=== PATIENT | male | born 1935 | race Caucasian/White ===

== ENCOUNTER 2018-03-07 08:15 | Inpatient (IN) | payer MEDICARE ==
[~2018-03-07] VITALS: Ht 172.7 cm; Wt 79.0 kg
[~2018-03-07 08:15] MED LIST: ASPI-612 PO; CARV6.253 PO; FLUO10CA66 PO; FURO40TA4 PO; LOVA20TA2 PO; NITR0.4T51 SL
[2018-03-07] MEDS ORDERED: furosemide 10 MG/1 ML 10ml inj IV ONE ×2 (08:20→08:25)
[2018-03-07] MEDS ORDERED: albuterol 2.5 MG/3 ML nebule CONTNEB PRN (08:25)
[2018-03-07] MEDS ORDERED: methylPREDNISolone sod succ 125mg/2ml vial IV ONE (08:25)
[2018-03-07] MEDS ORDERED: nitroGLYCERIN-Tridil 50MG/D5W 250 ML IV PRN (08:28)
[2018-03-07 08:30] LABS: ABG BASE EXCESS -4.3 mmol/L (-2.0-3.0); ABG HCO3 24.3 mmol/L (22.0-26.0); ABG OXYGEN SATURATION 97.2 % (95-98); ABG PCO2 (T) 56.6 mmHg (35.0-48.0); ABG PH (T) 7.244 (7.350-7.450); ABG PO2 (T) 106.3 mmHg (83-108); FCOHb 0.6 % (0.5-1.5); FMetHb 0.2 % (0.3-1.12); FO2Hb 96.4 % (94-100); PATIENT TEMPERATURE 35.8; RESPIRATORY RATE 20 b/min; TOTAL HEMOGLOBIN 15.1 G/dl (14.0-18.0)
[2018-03-07 08:50] LABS: BASOPHILS % (AUTO) 0.1 % (0-1); EOSINOPHILS # (AUTO) 0.2 X10'3 (0-0.9); EOSINOPHILS % (AUTO) 1.2 % (0-6); HEMATOCRIT 43.8 % (42.0-52.0); HEMOGLOBIN 14.3 g/dl (14.0-17.9); LYMPHOCYTES # (AUTO) 1.6 X10'3 (1.1-4.8); LYMPHOCYTES % (AUTO) 10.5 % (21-51); MEAN CORPUSCULAR HEMOGLOBIN 31.2 PG (27.0-31.0); MEAN CORPUSCULAR HGB CONC 32.6 % (33.0-36.5); MEAN CORPUSCULAR VOLUME 95.8 FL (78-98); MEAN PLATELET VOLUME 9.1 FL (7.4-10.4); MONOCYTES # (AUTO) 0.5 X10'3 (0-0.9); MONOCYTES % (AUTO) 3.4 % (2-12); NEUTROPHILS % (AUTO) 84.8 % (42-75); PLATELET COUNT 219 X10'3 (140-440); RED BLOOD COUNT 4.57 X10'6 (4.70-6.10); WHITE BLOOD COUNT 15.4 X10'3 (4.5-11.0)
[2018-03-07] MEDS ORDERED: levoFLOXACIN-Levaquin 500mg/D5 100 ML IV ONE (08:55)
[2018-03-07 09:12] LABS: CLARITY,URINE CLEAR (Clear); COLOR,URINE YELLOW (Yellow); GLUCOSE, URINE NEGATIVE (Neg); KETONES,URINE NEGATIVE (Neg); LEUKOCYTE ESTERASE ,URINE NEGATIVE (Neg); NITRITES, URINE NEGATIVE (Neg); OCCULT BLOOD,URINE NEGATIVE (Neg); PH,URINE 5.5 (4.8-8.0); PROTEIN,URINE 30 mg/dl (Neg); UROBILINOGEN,URINE 0.2 E.U/dL (0.2-1.0)
[2018-03-07 09:14] LABS: UA COLLECTION TYPE FOLEY CATH
[2018-03-07 09:18] LABS: ALANINE AMINOTRANSFERASE 35 U/L (12-78); ALBUMIN 3.1 G/DL (3.4-5.0); ALBUMIN/GLOBULIN RATIO 0.8 (1.1-1.5); ALKALINE PHOSPHATASE 166 IU/L (46-116); ANION GAP 10 (8-16); ASPARTATE AMINO TRANSFERASE 37 U/L (10-37); BILIRUBIN,TOTAL 0.3 MG/DL (0.1-1.0); BLOOD UREA NITROGEN 24 MG/DL (7-18); CALCIUM 8.9 MG/DL (8.5-10.1); CHLORIDE 104 MMOL/L (99-107); CREATININE 1.33 MG/DL (0.60-1.10); GLUCOSE 284 MG/DL (70-104); POTASSIUM 4.7 MMOL/L (3.5-5.1); SODIUM 140 MMOL/L (135-145); TOTAL CARBON DIOXIDE 26.2 MMOL/L (24-32); eGFR 52 ML/MIN
[2018-03-07 09:19] LABS: PROTHROMBIN TIME 10.1 SECONDS (9.0-12.0)
[2018-03-07 09:20] LABS: PARTIAL THROMBOPLASTIN TIME 24 SECONDS (22-32)
[2018-03-07 09:21] LABS: BACTERIA,URINE NONE SEEN /HPF (Neg); MUCUS STRANDS FEW /LPF (Neg); RBC,URINE NONE SEEN /HPF (0-2); SQUAMOUS EPITHELIAL CELL,UR FEW /LPF (FEW); WBC,URINE 0-4 /HPF (0-4)
[2018-03-07 09:22] LABS: HYALINE CASTS 0-3 /LPF (NEGATIVE); TRANSITIONAL EPI CELLS,URINE FEW /HPF
[2018-03-07 10:30] LABS: ABG BASE EXCESS -0.3 mmol/L (-2.0-3.0); ABG HCO3 25.7 mmol/L (22.0-26.0); ABG OXYGEN SATURATION 99.4 % (95-98); ABG PCO2 (T) 45.8 mmHg (35.0-48.0); ABG PH (T) 7.364 (7.350-7.450); ABG PO2 (T) 264.2 mmHg (83-108); ALLEN'S TEST Positive; FCOHb 0.4 % (0.5-1.5); FMetHb 0.2 % (0.3-1.12); FO2Hb 98.8 % (94-100); PATIENT TEMPERATURE 36.5; RESPIRATORY RATE 20 b/min; RESPIRATORY RATE (OBSERVED) 30 b/min; TOTAL HEMOGLOBIN 14.1 G/dl (14.0-18.0)
[2018-03-07] MEDS: normal saline 1000ml 1,000 ML IV SCH (11:56)
[2018-03-07] MEDS ORDERED: magnesium 4gm in 100ml NS 100 ML IV PRN (12:00)
[2018-03-07] MEDS ORDERED: potassium Cl 20 mEq SR tablet PO PRN ×2 (12:00)
[2018-03-07] MEDS ORDERED: acetaminophen 325mg tablet PO PRN (12:00)
[2018-03-07] MEDS ORDERED: potassium Cl 40MEQ/NS 500ml 500 ML IV PRN ×2 (12:00)
[2018-03-07] MEDS: K and/or MAG REPLACEMENT MC SCH (12:00)
[2018-03-07] MEDS ORDERED: magnesium Cl slow-release 64mg tablet PO PRN (12:00)
[2018-03-07] MEDS ORDERED: magnesium 1gm/100ml D5W IVPB 100 ML IV PRN (12:00)
[2018-03-07] MEDS ORDERED: CARV-50 PO (12:03)
[2018-03-07] MEDS ORDERED: CHOL10002 PO (12:05)
[2018-03-07] MEDS ORDERED: FURO-150 PO (12:06)
[2018-03-07] MEDS ORDERED: APIX2.5T PO (12:09)
[2018-03-07] MEDS ORDERED: LORA10CA PO (12:11)
[2018-03-07] MEDS: levoFLOXACIN-Levaquin 500mg/D5 100 ML IV SCH (12:15)
[2018-03-07 14:00] VITALS: BP 119/69
[2018-03-07 15:00] VITALS: BP 105/72
[2018-03-07] MEDS ORDERED: LOVASTATIN 40 MG PO SCH (17:00)
[2018-03-07 19:00] VITALS: BP 159/91
[2018-03-07] MEDS: apixaban 2.5mg tablet PO SCH (20:46)
[2018-03-07] MEDS: methylPREDNISolone sod succ/PF 40mg inj. IV SCH (20:46)
[2018-03-07] MEDS: carVEDilol 12.5mg tablet PO SCH (20:46)
[2018-03-07] MEDS: FLUoxetine 20mg capsule PO SCH (20:46)
[2018-03-07] MEDS: furosemide 20MG tablet PO SCH (20:46)
[2018-03-07] MEDS: heparin, porcine 5000 units/ml vial SQ SCH (20:47)
[2018-03-07] MEDS: atorvastatin 10mg tablet PO SCH (20:48)
[2018-03-07 23:00] VITALS: BP 116/65
[2018-03-08 03:00] VITALS: BP 114/59
[2018-03-08 05:31] LABS: BASOPHILS % (AUTO) 0.1 % (0-1); EOSINOPHILS % (AUTO) 0 % (0-6); HEMATOCRIT 36.7 % (42.0-52.0); LYMPHOCYTES # (AUTO) 0.7 X10'3 (1.1-4.8); LYMPHOCYTES % (AUTO) 6.4 % (21-51); MEAN CORPUSCULAR HGB CONC 32.7 % (33.0-36.5); MEAN CORPUSCULAR VOLUME 94.8 FL (78-98); MEAN PLATELET VOLUME 9.7 FL (7.4-10.4); MONOCYTES # (AUTO) 0.2 X10'3 (0-0.9); MONOCYTES % (AUTO) 1.9 % (2-12); NEUTROPHILS % (AUTO) 91.6 % (42-75); PLATELET COUNT 162 X10'3 (140-440); RED BLOOD COUNT 3.87 X10'6 (4.70-6.10); RED CELL DISTRIBUTION WIDTH 14.6 % (11.5-14.5); WHITE BLOOD COUNT 10.9 X10'3 (4.5-11.0)
[2018-03-08 05:57] LABS: ALBUMIN 2.6 G/DL (3.4-5.0); ANION GAP 9 (8-16); BLOOD UREA NITROGEN 22 MG/DL (7-18); BUN/CREATININE RATIO 22.9 (5.4-32.0); CALCIUM 8.7 MG/DL (8.5-10.1); CHLORIDE 101 MMOL/L (99-107); CREATININE 0.96 MG/DL (0.60-1.10); GLUCOSE 151 MG/DL (70-104); MAGNESIUM 1.8 MG/DL (1.5-2.4); POTASSIUM 4.4 MMOL/L (3.5-5.1); SODIUM 139 MMOL/L (135-145); TOTAL CARBON DIOXIDE 29.5 MMOL/L (24-32); eGFR 75 ML/MIN
[2018-03-08 07:00] VITALS: BP 114/58
[2018-03-08] MEDS: heparin, porcine 5000 units/ml vial SQ SCH ×2 (07:42→21:34)
[2018-03-08] MEDS: methylPREDNISolone sod succ/PF 40mg inj. IV SCH ×2 (07:42→21:33)
[2018-03-08] MEDS: carVEDilol 12.5mg tablet PO SCH ×2 (07:43→21:34)
[2018-03-08] MEDS: aspirin 81mg tablet.DR PO SCH (07:43)
[2018-03-08] MEDS: apixaban 2.5mg tablet PO SCH ×2 (07:43→21:35)
[2018-03-08] MEDS: loratadine 10mg tablet PO SCH (07:43)
[2018-03-08] MEDS: azithromycin/NS 500mg/250ml 250 ML IV SCH (07:43)
[2018-03-08] MEDS: levoFLOXACIN-Levaquin 500mg/D5 100 ML IV SCH (07:43)
[2018-03-08] MEDS ORDERED: LORATADINE 10 MG PO SCH (08:00)
[2018-03-08] MEDS: K and/or MAG REPLACEMENT MC SCH (08:00)
[2018-03-08] MEDS ORDERED: non-formulary drug (Aspirin (Aspir 81) 1 TAB) PO SCH (08:00)
[2018-03-08 11:00] VITALS: BP 113/56
[2018-03-08 15:54] VITALS: BP 113/56
[2018-03-08] MEDS: atorvastatin 10mg tablet PO SCH (16:21)
[2018-03-08 19:00] VITALS: BP 109/58
[2018-03-08] MEDS: FLUoxetine 20mg capsule PO SCH (21:34)
[2018-03-08] MEDS: lactobacillus rhamnosus 10,000 MMU CELLS/CAPSULE PO SCH (21:34)
[2018-03-08] MEDS: furosemide 20MG tablet PO SCH (21:35)
[2018-03-08 23:00] VITALS: BP 111/68
[2018-03-09 03:00] VITALS: BP 115/51
[2018-03-09 05:09] LABS: BASOPHILS % (AUTO) 0.1 % (0-1); EOSINOPHILS # (AUTO) 0.1 X10'3 (0-0.9); HEMATOCRIT 35.1 % (42.0-52.0); HEMOGLOBIN 11.4 g/dl (14.0-17.9); LYMPHOCYTES # (AUTO) 0.7 X10'3 (1.1-4.8); MEAN CORPUSCULAR HEMOGLOBIN 30.8 PG (27.0-31.0); MEAN CORPUSCULAR HGB CONC 32.4 % (33.0-36.5); MEAN PLATELET VOLUME 9.2 FL (7.4-10.4); MONOCYTES # (AUTO) 0.4 X10'3 (0-0.9); MONOCYTES % (AUTO) 2.9 % (2-12); NEUTROPHILS # (AUTO) 12.8 X10'3 (1.8-7.7); PLATELET COUNT 153 X10'3 (140-440); RED CELL DISTRIBUTION WIDTH 14.8 % (11.5-14.5); WHITE BLOOD COUNT 14.1 X10'3 (4.5-11.0)
[2018-03-09 05:20] LABS: ALBUMIN 2.5 G/DL (3.4-5.0); ANION GAP 6 (8-16); BLOOD UREA NITROGEN 22 MG/DL (7-18); BUN/CREATININE RATIO 30.1 (5.4-32.0); CALCIUM 8.4 MG/DL (8.5-10.1); CHLORIDE 102 MMOL/L (99-107); CREATININE 0.73 MG/DL (0.60-1.10); GLUCOSE 162 MG/DL (70-104); MAGNESIUM 1.9 MG/DL (1.5-2.4); POTASSIUM 4.5 MMOL/L (3.5-5.1); SODIUM 137 MMOL/L (135-145); TOTAL CARBON DIOXIDE 29.4 MMOL/L (24-32); eGFR > 90 ML/MIN
[2018-03-09 06:00] VITALS: BP 112/59
[2018-03-09] MEDS: K and/or MAG REPLACEMENT MC SCH (08:00)
[2018-03-09] MEDS: carVEDilol 12.5mg tablet PO SCH ×2 (08:42→20:27)
[2018-03-09] MEDS: lactobacillus rhamnosus 10,000 MMU CELLS/CAPSULE PO SCH ×2 (08:42→20:28)
[2018-03-09] MEDS: apixaban 2.5mg tablet PO SCH ×2 (08:43→20:28)
[2018-03-09] MEDS: aspirin 81mg tablet.DR PO SCH (08:43)
[2018-03-09] MEDS: loratadine 10mg tablet PO SCH (08:44)
[2018-03-09] MEDS: methylPREDNISolone sod succ/PF 40mg inj. IV SCH ×2 (08:46→20:27)
[2018-03-09] MEDS: heparin, porcine 5000 units/ml vial SQ SCH ×2 (08:46→20:27)
[2018-03-09] MEDS: azithromycin/NS 500mg/250ml 250 ML IV SCH (08:46)
[2018-03-09] MEDS: levoFLOXACIN-Levaquin 500mg/D5 100 ML IV SCH (10:21)
[2018-03-09 11:00] VITALS: BP 94/52
[2018-03-09] MEDS: normal saline 1000ml 1,000 ML IV SCH (11:56)
[2018-03-09] MEDS ORDERED: ALPRAZolam 0.5mg tablet PO PRN (14:35)
[2018-03-09 15:00] VITALS: BP 97/54
[2018-03-09 19:00] VITALS: BP 106/67
[2018-03-09] MEDS: furosemide 20MG tablet PO SCH (20:28)
[2018-03-09] MEDS: FLUoxetine 20mg capsule PO SCH (20:28)
[2018-03-09] MEDS: atorvastatin 10mg tablet PO SCH (20:28)
[2018-03-09 23:00] VITALS: BP 111/81
[2018-03-10] MEDS ORDERED: ipratropium/albuterol 3ml nebule NEB PRN (02:30)
[2018-03-10 03:00] VITALS: BP 109/62
[2018-03-10 05:59] LABS: BASOPHILS # (AUTO) 0.1 X10'3 (0-0.2); BASOPHILS % (AUTO) 0.6 % (0-1); EOSINOPHILS # (AUTO) 0.1 X10'3 (0-0.9); EOSINOPHILS % (AUTO) 0.9 % (0-6); HEMATOCRIT 36.1 % (42.0-52.0); HEMOGLOBIN 11.8 g/dl (14.0-17.9); LYMPHOCYTES # (AUTO) 0.7 X10'3 (1.1-4.8); LYMPHOCYTES % (AUTO) 5.7 % (21-51); MEAN CORPUSCULAR HEMOGLOBIN 30.7 PG (27.0-31.0); MEAN CORPUSCULAR HGB CONC 32.6 % (33.0-36.5); MEAN CORPUSCULAR VOLUME 94.1 FL (78-98); MEAN PLATELET VOLUME 10.3 FL (7.4-10.4); MONOCYTES # (AUTO) 0.5 X10'3 (0-0.9); MONOCYTES % (AUTO) 4.2 % (2-12); NEUTROPHILS # (AUTO) 10.7 X10'3 (1.8-7.7); NEUTROPHILS % (AUTO) 88.6 % (42-75); PLATELET COUNT 169 X10'3 (140-440); RED BLOOD COUNT 3.83 X10'6 (4.70-6.10); RED CELL DISTRIBUTION WIDTH 14.5 % (11.5-14.5); WHITE BLOOD COUNT 12.1 X10'3 (4.5-11.0)
[2018-03-10 06:00] VITALS: BP 118/76
[2018-03-10 06:26] LABS: ALBUMIN 2.7 G/DL (3.4-5.0); ANION GAP 7 (8-16); BLOOD UREA NITROGEN 23 MG/DL (7-18); BUN/CREATININE RATIO 32.4 (5.4-32.0); CALCIUM 8.8 MG/DL (8.5-10.1); CHLORIDE 102 MMOL/L (99-107); CREATININE 0.71 MG/DL (0.60-1.10); GLUCOSE 155 MG/DL (70-104); POTASSIUM 4.6 MMOL/L (3.5-5.1); SODIUM 137 MMOL/L (135-145); TOTAL CARBON DIOXIDE 27.7 MMOL/L (24-32); eGFR > 90 ML/MIN
[2018-03-10] MEDS: K and/or MAG REPLACEMENT MC SCH (08:00)
[2018-03-10] MEDS: loratadine 10mg tablet PO SCH (08:03)
[2018-03-10] MEDS: lactobacillus rhamnosus 10,000 MMU CELLS/CAPSULE PO SCH (08:04)
[2018-03-10] MEDS: aspirin 81mg tablet.DR PO SCH (08:04)
[2018-03-10] MEDS: carVEDilol 12.5mg tablet PO SCH (08:04)
[2018-03-10] MEDS: apixaban 2.5mg tablet PO SCH (08:04)
[2018-03-10] MEDS: heparin, porcine 5000 units/ml vial SQ SCH (08:05)
[2018-03-10] MEDS: methylPREDNISolone sod succ/PF 40mg inj. IV SCH (08:11)
[2018-03-10] MEDS: azithromycin/NS 500mg/250ml 250 ML IV SCH (08:11)
[2018-03-10] MEDS: levoFLOXACIN-Levaquin 500mg/D5 100 ML IV SCH (09:58)
[2018-03-10] MEDS ORDERED: IPRA3AMP9 NEB (10:20)
[2018-03-10] MEDS ORDERED: AZIT500T PO (10:20)
[2018-03-10] MEDS ORDERED: LEVO500T2 PO (10:20)
[2018-03-10] MEDS ORDERED: PRED20TA PO (10:29)
[2018-03-10 11:00] VITALS: BP 90/58
== END 2018-03-10 14:55 | disposition home or self-care (01) | DRG 871 ==
LOC: EDBD 08:15 → EDSEX 08:15 → ER 08:17 → ED HOLD 11:56 → PCU 3S 14:10
PROVIDERS: ADMIT Internal Medicine; ATTEND Internal Medicine
PROC: 5A09357 Assistance with Respiratory Ventilation, Less than 24 Consecutive Hours, Continuous Positive Airway Pressure (ICD-10-PCS; principal; 2018-03-07)
DX: A41.9 Sepsis, unspecified organism (principal); J96.21 Acute and chronic respiratory failure with hypoxia; J96.22 Acute and chronic respiratory failure with hypercapnia; J18.1 Lobar pneumonia, unspecified organism; J44.1 Chronic obstructive pulmonary disease with (acute) exacerbation; N17.9 Acute kidney failure, unspecified; J44.0 Chronic obstructive pulmonary disease with (acute) lower respiratory infection; I50.22 Chronic systolic (congestive) heart failure; E78.5 Hyperlipidemia, unspecified; F32.9 Major depressive disorder, single episode, unspecified; F41.9 Anxiety disorder, unspecified; I11.0 Hypertensive heart disease with heart failure; I25.10 Atherosclerotic heart disease of native coronary artery without angina pectoris; Z66 Do not resuscitate; Z99.81 Dependence on supplemental oxygen; Z90.2 Acquired absence of lung [part of]; Z95.5 Presence of coronary angioplasty implant and graft; Z95.810 Presence of automatic (implantable) cardiac defibrillator; Z88.0 Allergy status to penicillin; Z88.1 Allergy status to other antibiotic agents; Z88.6 Allergy status to analgesic agent; Z88.8 Allergy status to other drugs, medicaments and biological substances; Z79.899 Other long term (current) drug therapy; Z79.82 Long term (current) use of aspirin; Z87.891 Personal history of nicotine dependence
CPT/HCPCS: 36415; 36600; 71045; 80048; 80053; 81001; 82803; 82948; 83605; 83735; 83880; 84145; 84484; 85018; 85025; 85610; 85730; 87040; 87070; 93005; 94640; 94644; 94660; 94760; 96365; 96366; 96368; 96375; 97116; 97161; 97530; 99291; J0456; J1644; J1940; J1956; J2920; J2930; J3490; J7030

== ENCOUNTER 2018-03-13 07:48 | Inpatient (IN) | payer MEDICARE ==
[~2018-03-13] VITALS: Ht 170.2 cm; Wt 79.0 kg
[~2018-03-13 07:48] MED LIST changes: +APIX2.5T PO; +AZIT500T PO; +CARV-50 PO; -CARV6.253 PO; +CHOL10002 PO; +FURO-150 PO; -FURO40TA4 PO; +IPRA3AMP9 NEB; +LEVO500T2 PO; +LORA10CA PO; -NITR0.4T51 SL; +PRED20TA PO
[2018-03-13] MEDS ORDERED: diltiazem 5mg/ml 5ml inj. IV ONE (08:10)
[2018-03-13] MEDS ORDERED: diltiazem 30mg tablet PO ONE (08:10)
[2018-03-13 08:36] LABS: BASOPHILS # (AUTO) 0.1 X10'3 (0-0.2); BASOPHILS % (AUTO) 0.4 % (0-1); EOSINOPHILS # (AUTO) 0.1 X10'3 (0-0.9); EOSINOPHILS % (AUTO) 0.5 % (0-6); HEMATOCRIT 41.2 % (42.0-52.0); HEMOGLOBIN 13.5 g/dl (14.0-17.9); LYMPHOCYTES # (AUTO) 2.5 X10'3 (1.1-4.8); LYMPHOCYTES % (AUTO) 16.1 % (21-51); MEAN CORPUSCULAR HEMOGLOBIN 30.9 PG (27.0-31.0); MEAN CORPUSCULAR HGB CONC 32.8 % (33.0-36.5); MEAN CORPUSCULAR VOLUME 94.2 FL (78-98); MEAN PLATELET VOLUME 10.2 FL (7.4-10.4); MONOCYTES # (AUTO) 0.9 X10'3 (0-0.9); MONOCYTES % (AUTO) 5.8 % (2-12); NEUTROPHILS # (AUTO) 12.2 X10'3 (1.8-7.7); NEUTROPHILS % (AUTO) 77.2 % (42-75); PLATELET COUNT 149 X10'3 (140-440); RED BLOOD COUNT 4.37 X10'6 (4.70-6.10); RED CELL DISTRIBUTION WIDTH 14.9 % (11.5-14.5); WHITE BLOOD COUNT 15.7 X10'3 (4.5-11.0)
[2018-03-13 08:48] LABS: ALANINE AMINOTRANSFERASE 107 U/L (12-78); ALBUMIN 2.8 G/DL (3.4-5.0); ALBUMIN/GLOBULIN RATIO 0.9 (1.1-1.5); ALKALINE PHOSPHATASE 98 IU/L (46-116); ANION GAP 7 (8-16); ASPARTATE AMINO TRANSFERASE 39 U/L (10-37); BILIRUBIN,TOTAL 0.4 MG/DL (0.1-1.0); BLOOD UREA NITROGEN 31 MG/DL (7-18); BUN/CREATININE RATIO 32.6 (5.4-32.0); CALCIUM 8.8 MG/DL (8.5-10.1); CHLORIDE 104 MMOL/L (99-107); CREATININE 0.95 MG/DL (0.60-1.10); GLUCOSE 120 MG/DL (70-104); SODIUM 141 MMOL/L (135-145); TOTAL CARBON DIOXIDE 30.1 MMOL/L (24-32); eGFR 76 ML/MIN
[2018-03-13 08:53] LABS: POTASSIUM 4.9 MMOL/L (3.5-5.1)
[2018-03-13 08:54] LABS: MAGNESIUM 2.1 MG/DL (1.5-2.4)
[2018-03-13 08:58] LABS: PROTHROMBIN TIME 10.7 SECONDS (9.0-12.0)
[2018-03-13] MEDS ORDERED: furosemide 10 MG/1 ML 10ml inj IV ONE (09:00)
[2018-03-13] MEDS ORDERED: mag hydrox/Alum hydrox/simeth 30ml oral suspension PO PRN (09:30)
[2018-03-13] MEDS: furosemide 40mg/4ml inj IV SCH (09:30)
[2018-03-13] MEDS ORDERED: ipratropium/albuterol 3ml nebule NEB PRN (09:30)
[2018-03-13] MEDS ORDERED: ondansetron/PF 4mg/2ml inj IV PRN (09:30)
[2018-03-13] MEDS ORDERED: digoxin 250mcg/ml 2ml ampule IV ONE (09:30)
[2018-03-13] MEDS ORDERED: potassium Cl 40MEQ/NS 500ml 500 ML IV PRN ×2 (09:30)
[2018-03-13] MEDS ORDERED: magnesium hydroxide 30ml (MOM) UD suspension PO PRN (09:30)
[2018-03-13] MEDS ORDERED: magnesium Cl slow-release 64mg tablet PO PRN (09:30)
[2018-03-13] MEDS ORDERED: magnesium 1gm/100ml D5W IVPB 100 ML IV PRN (09:30)
[2018-03-13] MEDS ORDERED: HYDROcodone/acetaminophen 5mg/325mg tablet PO PRN (09:30)
[2018-03-13] MEDS ORDERED: potassium Cl 20 mEq SR tablet PO PRN ×2 (09:30)
[2018-03-13] MEDS ORDERED: acetaminophen 325mg tablet PO PRN (09:30)
[2018-03-13] MEDS ORDERED: magnesium 4gm in 100ml NS 100 ML IV PRN (09:30)
[2018-03-13 11:00] VITALS: BP 117/74
[2018-03-13 15:00] VITALS: BP 114/75
[2018-03-13 19:00] VITALS: BP 126/75
[2018-03-13] MEDS ORDERED: apixaban 2.5mg tablet PO SCH (20:00)
[2018-03-13] MEDS: carVEDilol 12.5mg tablet PO SCH (20:55)
[2018-03-13 23:00] VITALS: BP 99/56
[2018-03-14 03:00] VITALS: BP 107/62
[2018-03-14 05:06] LABS: BASOPHILS % (AUTO) 0.4 % (0-1); EOSINOPHILS # (AUTO) 0.2 X10'3 (0-0.9); HEMATOCRIT 36.8 % (42.0-52.0); LYMPHOCYTES # (AUTO) 2.1 X10'3 (1.1-4.8); LYMPHOCYTES % (AUTO) 20.6 % (21-51); MEAN CORPUSCULAR HEMOGLOBIN 31.2 PG (27.0-31.0); MEAN CORPUSCULAR HGB CONC 32.5 % (33.0-36.5); MEAN CORPUSCULAR VOLUME 95.8 FL (78-98); MEAN PLATELET VOLUME 10.1 FL (7.4-10.4); MONOCYTES # (AUTO) 0.6 X10'3 (0-0.9); MONOCYTES % (AUTO) 5.5 % (2-12); NEUTROPHILS # (AUTO) 7.3 X10'3 (1.8-7.7); NEUTROPHILS % (AUTO) 71.5 % (42-75); PLATELET COUNT 145 X10'3 (140-440); RED BLOOD COUNT 3.84 X10'6 (4.70-6.10); RED CELL DISTRIBUTION WIDTH 15.1 % (11.5-14.5); WHITE BLOOD COUNT 10.3 X10'3 (4.5-11.0)
[2018-03-14 05:51] LABS: ALANINE AMINOTRANSFERASE 75 U/L (12-78); ALBUMIN 2.5 G/DL (3.4-5.0); ALBUMIN/GLOBULIN RATIO 0.9 (1.1-1.5); ALKALINE PHOSPHATASE 86 IU/L (46-116); ANION GAP 5 (8-16); ASPARTATE AMINO TRANSFERASE 20 U/L (10-37); BILIRUBIN,TOTAL 0.6 MG/DL (0.1-1.0); BLOOD UREA NITROGEN 22 MG/DL (7-18); BUN/CREATININE RATIO 27.2 (5.4-32.0); CALCIUM 8.4 MG/DL (8.5-10.1); CHLORIDE 102 MMOL/L (99-107); CREATININE 0.81 MG/DL (0.60-1.10); GLUCOSE 84 MG/DL (70-104); MAGNESIUM 2.1 MG/DL (1.5-2.4); POTASSIUM 4.1 MMOL/L (3.5-5.1); SODIUM 140 MMOL/L (135-145); TOTAL PROTEIN 5.2 G/DL (6.4-8.2); eGFR > 90 ML/MIN
[2018-03-14 07:00] VITALS: BP 102/73
[2018-03-14] MEDS: furosemide 40mg/4ml inj IV SCH (07:36)
[2018-03-14] MEDS: carVEDilol 12.5mg tablet PO SCH ×2 (07:36→21:31)
[2018-03-14] MEDS: apixaban 5mg tablet PO SCH ×2 (07:36→21:31)
[2018-03-14] MEDS: K and/or MAG REPLACEMENT MC SCH (08:00)
[2018-03-14] MEDS ORDERED: levoFLOXACIN-Levaquin 500mg/D5 100 ML IV SCH (08:00)
[2018-03-14 11:00] VITALS: BP 97/53
[2018-03-14] MEDS ORDERED: CefTRIAXone/D5W-Rocephin 1gm 50 ML IV ONE (11:40)
[2018-03-14 15:00] VITALS: BP 111/70
[2018-03-14 19:00] VITALS: BP 135/75
[2018-03-14 23:00] VITALS: BP 100/75
[2018-03-15 03:00] VITALS: BP 100/63
[2018-03-15 05:45] LABS: BASOPHILS % (AUTO) 0.3 % (0-1); EOSINOPHILS # (AUTO) 0.3 X10'3 (0-0.9); EOSINOPHILS % (AUTO) 3.4 % (0-6); HEMATOCRIT 36.2 % (42.0-52.0); HEMOGLOBIN 11.9 g/dl (14.0-17.9); LYMPHOCYTES # (AUTO) 1.9 X10'3 (1.1-4.8); LYMPHOCYTES % (AUTO) 20.5 % (21-51); MEAN CORPUSCULAR HEMOGLOBIN 31.2 PG (27.0-31.0); MEAN CORPUSCULAR HGB CONC 32.8 % (33.0-36.5); MEAN PLATELET VOLUME 9.6 FL (7.4-10.4); MONOCYTES # (AUTO) 0.6 X10'3 (0-0.9); MONOCYTES % (AUTO) 6.9 % (2-12); NEUTROPHILS # (AUTO) 6.4 X10'3 (1.8-7.7); NEUTROPHILS % (AUTO) 68.9 % (42-75); PLATELET COUNT 145 X10'3 (140-440); RED BLOOD COUNT 3.81 X10'6 (4.70-6.10); RED CELL DISTRIBUTION WIDTH 15.3 % (11.5-14.5); WHITE BLOOD COUNT 9.3 X10'3 (4.5-11.0)
[2018-03-15 05:56] LABS: ALANINE AMINOTRANSFERASE 60 U/L (12-78); ALBUMIN 2.5 G/DL (3.4-5.0); ALBUMIN/GLOBULIN RATIO 0.9 (1.1-1.5); ALKALINE PHOSPHATASE 106 IU/L (46-116); ANION GAP 3 (8-16); ASPARTATE AMINO TRANSFERASE 17 U/L (10-37); BILIRUBIN,TOTAL 0.4 MG/DL (0.1-1.0); BLOOD UREA NITROGEN 18 MG/DL (7-18); BUN/CREATININE RATIO 25.7 (5.4-32.0); CALCIUM 8.7 MG/DL (8.5-10.1); CHLORIDE 103 MMOL/L (99-107); GLUCOSE 96 MG/DL (70-104); POTASSIUM 4.1 MMOL/L (3.5-5.1); SODIUM 141 MMOL/L (135-145); TOTAL CARBON DIOXIDE 35.2 MMOL/L (24-32); TOTAL PROTEIN 5.2 G/DL (6.4-8.2); eGFR > 90 ML/MIN
[2018-03-15 06:00] VITALS: BP 95/55
[2018-03-15] MEDS ORDERED: vancomycin/NS 1 GM ADD-VANTAGE 250 ML IV SCH (08:00)
[2018-03-15] MEDS: furosemide 40mg/4ml inj IV SCH (08:00)
[2018-03-15] MEDS ORDERED: CefTRIAXone/D5W-Rocephin 1gm 50 ML IV SCH (08:00)
[2018-03-15] MEDS: K and/or MAG REPLACEMENT MC SCH (08:00)
[2018-03-15] MEDS: carVEDilol 12.5mg tablet PO SCH ×2 (08:00→20:09)
[2018-03-15] MEDS: apixaban 5mg tablet PO SCH ×2 (09:12→20:08)
[2018-03-15] MEDS: vancomycin/NS 1 GM ADD-VANTAGE 250 ML IV SCH ×2 (09:12→17:49)
[2018-03-15 11:00] VITALS: BP 98/64
[2018-03-15 15:00] VITALS: BP 87/46
[2018-03-15] MEDS ORDERED: VANCOMYCIN LEVEL IV ONE (16:30)
[2018-03-15 18:00] VITALS: BP 119/71
[2018-03-15 22:00] VITALS: BP 95/50
[2018-03-16] MEDS: vancomycin/NS 1 GM ADD-VANTAGE 250 ML IV SCH ×2 (00:21→08:13)
[2018-03-16 02:00] VITALS: BP 102/56
[2018-03-16 05:27] LABS: BASOPHILS % (AUTO) 0.4 % (0-1); EOSINOPHILS # (AUTO) 0.3 X10'3 (0-0.9); EOSINOPHILS % (AUTO) 3.4 % (0-6); HEMATOCRIT 35.8 % (42.0-52.0); HEMOGLOBIN 11.7 g/dl (14.0-17.9); LYMPHOCYTES # (AUTO) 1.9 X10'3 (1.1-4.8); LYMPHOCYTES % (AUTO) 20.1 % (21-51); MEAN CORPUSCULAR HEMOGLOBIN 31.3 PG (27.0-31.0); MEAN CORPUSCULAR HGB CONC 32.6 % (33.0-36.5); MEAN PLATELET VOLUME 9.7 FL (7.4-10.4); MONOCYTES # (AUTO) 0.7 X10'3 (0-0.9); MONOCYTES % (AUTO) 7.1 % (2-12); NEUTROPHILS # (AUTO) 6.4 X10'3 (1.8-7.7); PLATELET COUNT 138 X10'3 (140-440); RED BLOOD COUNT 3.73 X10'6 (4.70-6.10); RED CELL DISTRIBUTION WIDTH 15.4 % (11.5-14.5); WHITE BLOOD COUNT 9.2 X10'3 (4.5-11.0)
[2018-03-16 06:00] VITALS: BP 126/84
[2018-03-16 06:00] LABS: ALANINE AMINOTRANSFERASE 52 U/L (12-78); ALBUMIN 2.4 G/DL (3.4-5.0); ALBUMIN/GLOBULIN RATIO 0.8 (1.1-1.5); ALKALINE PHOSPHATASE 112 IU/L (46-116); ANION GAP 4 (8-16); ASPARTATE AMINO TRANSFERASE 16 U/L (10-37); BILIRUBIN,TOTAL 0.3 MG/DL (0.1-1.0); BLOOD UREA NITROGEN 18 MG/DL (7-18); CALCIUM 8.5 MG/DL (8.5-10.1); CHLORIDE 104 MMOL/L (99-107); CREATININE 0.72 MG/DL (0.60-1.10); GLUCOSE 100 MG/DL (70-104); POTASSIUM 4.4 MMOL/L (3.5-5.1); SODIUM 140 MMOL/L (135-145); TOTAL CARBON DIOXIDE 31.7 MMOL/L (24-32); TOTAL PROTEIN 5.3 G/DL (6.4-8.2); eGFR > 90 ML/MIN
[2018-03-16] MEDS ORDERED: lactobacillus rhamnosus 10,000 MMU CELLS/CAPSULE PO SCH (08:00)
[2018-03-16] MEDS: K and/or MAG REPLACEMENT MC SCH (08:00)
[2018-03-16] MEDS: furosemide 40mg/4ml inj IV SCH (08:12)
[2018-03-16] MEDS: carVEDilol 12.5mg tablet PO SCH (08:13)
[2018-03-16] MEDS: apixaban 5mg tablet PO SCH (08:13)
[2018-03-16 11:00] VITALS: BP 117/83
[2018-03-16] MEDS ORDERED: POTA20TA19 PO (13:28)
[2018-03-16] MEDS ORDERED: MAGN400T6 PO (13:28)
[2018-03-16] MEDS ORDERED: FURO-150 PO (13:31)
[2018-03-16 15:00] VITALS: BP 117/59
[2018-03-16] MEDS ORDERED: VANCOMYCIN LEVEL IV ONE (16:30)
== END 2018-03-16 17:00 | disposition home health service (06) | DRG 291 ==
LOC: ER 07:48 → ED HOLD 09:26 → PCU 3S 10:57
PROVIDERS: ADMIT Internal Medicine; ATTEND Family Medicine
PROC: 4B02XTZ Measurement of Cardiac Defibrillator, External Approach (ICD-10-PCS; principal; 2018-03-14)
DX: I11.0 Hypertensive heart disease with heart failure (principal); J18.9 Pneumonia, unspecified organism; J96.10 Chronic respiratory failure, unspecified whether with hypoxia or hypercapnia; I47.2 Ventricular tachycardia; J98.11 Atelectasis; I50.23 Acute on chronic systolic (congestive) heart failure; I42.9 Cardiomyopathy, unspecified; E78.5 Hyperlipidemia, unspecified; F32.9 Major depressive disorder, single episode, unspecified; I25.10 Atherosclerotic heart disease of native coronary artery without angina pectoris; I48.0 Paroxysmal atrial fibrillation; I71.4 Abdominal aortic aneurysm, without rupture; J44.9 Chronic obstructive pulmonary disease, unspecified; I73.9 Peripheral vascular disease, unspecified; F17.210 Nicotine dependence, cigarettes, uncomplicated; Z66 Do not resuscitate; I25.2 Old myocardial infarction; Z99.81 Dependence on supplemental oxygen; Z90.2 Acquired absence of lung [part of]; Z95.810 Presence of automatic (implantable) cardiac defibrillator; Z95.5 Presence of coronary angioplasty implant and graft; Z88.1 Allergy status to other antibiotic agents; Z88.5 Allergy status to narcotic agent; Z88.0 Allergy status to penicillin; Z88.8 Allergy status to other drugs, medicaments and biological substances; Z79.899 Other long term (current) drug therapy; Z79.01 Long term (current) use of anticoagulants; Z79.82 Long term (current) use of aspirin; Z71.6 Tobacco abuse counseling
CPT/HCPCS: 36415; 71045; 80053; 80162; 80202; 83735; 83880; 84145; 84484; 85025; 85610; 93005; 96374; 96375; 99285; G0378; J1160; J1940; J3370; J3490

== ENCOUNTER 2018-03-24 12:20 | Inpatient (IN) | payer MEDICARE ==
[~2018-03-24] VITALS: Ht 177.8 cm; Wt 84.0 kg
[~2018-03-24 12:20] MED LIST changes: -AZIT500T PO; -FLUO10CA66 PO; -LEVO500T2 PO; +MAGN400T6 PO; +POTA20TA19 PO; -PRED20TA PO
[2018-03-24] MEDS ORDERED: levoFLOXACIN-Levaquin 750MG/D5 150 ML IV ONE (12:25)
[2018-03-24] MEDS ORDERED: albuterol 2.5 MG/3 ML nebule CONTNEB PRN (12:25)
[2018-03-24 12:40] LABS: BASOPHILS # (AUTO) 0.1 X10'3 (0-0.2); BASOPHILS % (AUTO) 0.9 % (0-1); EOSINOPHILS # (AUTO) 0.1 X10'3 (0-0.9); EOSINOPHILS % (AUTO) 0.5 % (0-6); HEMATOCRIT 39.2 % (42.0-52.0); HEMOGLOBIN 12.6 g/dl (14.0-17.9); LYMPHOCYTES # (AUTO) 1.8 X10'3 (1.1-4.8); LYMPHOCYTES % (AUTO) 15.3 % (21-51); MEAN CORPUSCULAR HEMOGLOBIN 30.6 PG (27.0-31.0); MEAN CORPUSCULAR VOLUME 95.6 FL (78-98); MEAN PLATELET VOLUME 9.9 FL (7.4-10.4); MONOCYTES % (AUTO) 8.6 % (2-12); NEUTROPHILS % (AUTO) 74.7 % (42-75); PLATELET COUNT 189 X10'3 (140-440); RED BLOOD COUNT 4.11 X10'6 (4.70-6.10); RED CELL DISTRIBUTION WIDTH 15.8 % (11.5-14.5); WHITE BLOOD COUNT 12.1 X10'3 (4.5-11.0)
[2018-03-24] MEDS ORDERED: AMIO200T40 PO (12:41)
[2018-03-24] MEDS ORDERED: LORA1TAB PO (12:41)
[2018-03-24] MEDS ORDERED: BUDE10.2 INH (12:41)
[2018-03-24 12:45] LABS: ABG BASE EXCESS 2.2 mmol/L (-2.0-3.0); ABG HCO3 25.5 mmol/L (22.0-26.0); ABG OXYGEN SATURATION 97.8 % (95-98); ABG PCO2 (T) 35.7 mmHg (35.0-48.0); ABG PH (T) 7.472 (7.350-7.450); ABG PO2 (T) 103.2 mmHg (83-108); ALLEN'S TEST Positive; FCOHb 0.4 % (0.5-1.5); FMetHb 0.2 % (0.3-1.12); FO2Hb 97.2 % (94-100); MINUTE VOLUME 20 L/min; RESPIRATORY RATE 16 b/min; TOTAL HEMOGLOBIN 13.4 G/dl (14.0-18.0)
[2018-03-24] MEDS ORDERED: ROSU20TA30 PO (12:45)
[2018-03-24] MEDS ORDERED: TRAZ150T78 PO (12:45)
[2018-03-24 12:57] LABS: ALANINE AMINOTRANSFERASE 59 U/L (12-78); ALBUMIN 3.2 G/DL (3.4-5.0); ALBUMIN/GLOBULIN RATIO 0.9 (1.1-1.5); ALKALINE PHOSPHATASE 110 IU/L (46-116); ANION GAP 10 (8-16); ASPARTATE AMINO TRANSFERASE 27 U/L (10-37); BILIRUBIN,TOTAL 0.7 MG/DL (0.1-1.0); BLOOD UREA NITROGEN 31 MG/DL (7-18); BUN/CREATININE RATIO 31.6 (5.4-32.0); CALCIUM 8.7 MG/DL (8.5-10.1); CHLORIDE 102 MMOL/L (99-107); CREATININE 0.98 MG/DL (0.60-1.10); GLUCOSE 128 MG/DL (70-104); SODIUM 138 MMOL/L (135-145); TOTAL CARBON DIOXIDE 26.4 MMOL/L (24-32); TOTAL PROTEIN 6.7 G/DL (6.4-8.2); eGFR 74 ML/MIN
[2018-03-24 13:01] LABS: POTASSIUM 5.2 MMOL/L (3.5-5.1)
[2018-03-24 13:09] LABS: INR 1.1 INR; PARTIAL THROMBOPLASTIN TIME 27 SECONDS (22-32); PROTHROMBIN TIME 11.5 SECONDS (9.0-12.0)
[2018-03-24] MEDS ORDERED: magnesium 4gm in 100ml NS 100 ML IV PRN (14:20)
[2018-03-24] MEDS ORDERED: potassium Cl 40MEQ/NS 500ml 500 ML IV PRN ×2 (14:20)
[2018-03-24] MEDS ORDERED: potassium Cl 20 mEq SR tablet PO PRN ×2 (14:20)
[2018-03-24] MEDS ORDERED: albuterol 2.5 MG/3 ML nebule NEB PRN ×2 (14:20)
[2018-03-24] MEDS ORDERED: magnesium Cl slow-release 64mg tablet PO PRN (14:20)
[2018-03-24] MEDS ORDERED: magnesium 1gm/100ml D5W IVPB 100 ML IV PRN (14:20)
[2018-03-24] MEDS ORDERED: ondansetron/PF 4mg/2ml inj IV PRN (14:20)
[2018-03-24 15:00] VITALS: BP 128/84
[2018-03-24 19:00] VITALS: BP 134/114
[2018-03-24] MEDS: methylPREDNISolone sod succ 125mg/2ml vial IV SCH (19:01)
[2018-03-24] MEDS ORDERED: LORazepam 2 mg/ml vial IV PRN (20:45)
[2018-03-24 21:00] VITALS: BP 146/93
[2018-03-24] MEDS: diltiazem-NS 100mg/100ml 100 ML IV SCH (21:00)
[2018-03-24] MEDS ORDERED: LORazepam 1 MG tablet PO PRN (21:20)
[2018-03-24 23:00] VITALS: BP 92/67
[2018-03-24] MEDS: ipratropium/albuterol 3ml nebule NEB PRN (23:50)
[2018-03-25] VITALS (11 sets, daily range): BP systolic 91–131; BP diastolic 53–106
[2018-03-25] MEDS: methylPREDNISolone sod succ 125mg/2ml vial IV SCH ×3 (00:16→16:28)
[2018-03-25] MEDS: ipratropium/albuterol 3ml nebule NEB PRN ×2 (04:18→23:40)
[2018-03-25 06:58] LABS: BASOPHILS % (AUTO) 0.2 % (0-1); EOSINOPHILS % (AUTO) 0 % (0-6); HEMATOCRIT 41.3 % (42.0-52.0); HEMOGLOBIN 13.4 g/dl (14.0-17.9); LYMPHOCYTES # (AUTO) 0.8 X10'3 (1.1-4.8); LYMPHOCYTES % (AUTO) 10.2 % (21-51); MEAN CORPUSCULAR HEMOGLOBIN 30.9 PG (27.0-31.0); MEAN CORPUSCULAR HGB CONC 32.3 % (33.0-36.5); MEAN CORPUSCULAR VOLUME 95.6 FL (78-98); MEAN PLATELET VOLUME 10.6 FL (7.4-10.4); MONOCYTES # (AUTO) 0.2 X10'3 (0-0.9); MONOCYTES % (AUTO) 2.9 % (2-12); NEUTROPHILS # (AUTO) 6.7 X10'3 (1.8-7.7); NEUTROPHILS % (AUTO) 86.7 % (42-75); PLATELET COUNT 167 X10'3 (140-440); RED BLOOD COUNT 4.32 X10'6 (4.70-6.10); RED CELL DISTRIBUTION WIDTH 16.1 % (11.5-14.5); WHITE BLOOD COUNT 7.7 X10'3 (4.5-11.0)
[2018-03-25 07:01] LABS: ALBUMIN 3.1 G/DL (3.4-5.0); ANION GAP 9 (8-16); BLOOD UREA NITROGEN 36 MG/DL (7-18); BUN/CREATININE RATIO 37.9 (5.4-32.0); CALCIUM 9.2 MG/DL (8.5-10.1); CHLORIDE 101 MMOL/L (99-107); CREATININE 0.95 MG/DL (0.60-1.10); GLUCOSE 198 MG/DL (70-104); MAGNESIUM 2.4 MG/DL (1.5-2.4); POTASSIUM 4.5 MMOL/L (3.5-5.1); SODIUM 137 MMOL/L (135-145); TOTAL CARBON DIOXIDE 26.8 MMOL/L (24-32); eGFR 76 ML/MIN
[2018-03-25 07:48] LABS: ANISOCYTOSIS 1+; BURR CELLS 1+; ELLIPTOCYTES 1+; LARGE PLATELETS FEW; PLATELET ESTIMATE NORMAL; POLYCHROMASIA 1+
[2018-03-25] MEDS: K and/or MAG REPLACEMENT MC SCH (08:06)
[2018-03-25] MEDS: amiodarone 200mg tablet PO SCH (08:37)
[2018-03-25] MEDS: apixaban 2.5mg tablet PO SCH ×2 (08:37→20:05)
[2018-03-25] MEDS: carVEDilol 12.5mg tablet PO SCH ×2 (08:38→20:05)
[2018-03-25] MEDS: levoFLOXACIN-Levaquin 750MG/D5 150 ML IV SCH (08:38)
[2018-03-25] MEDS: aspirin 81mg tablet.DR PO SCH (08:38)
[2018-03-25] MEDS: magnesium oxide 400mg tablet PO SCH ×2 (08:41→20:04)
[2018-03-25] MEDS: furosemide 40mg/4ml inj IV SCH ×2 (10:39→20:00)
[2018-03-25] MEDS: albuterol 2.5 MG/3 ML nebule NEB SCH ×3 (11:00→19:34)
[2018-03-25] MEDS ORDERED: iohexol 350MG/ML 100ml bottle IV ONE (12:07)
[2018-03-25] MEDS: diltiazem-NS 100mg/100ml 100 ML IV SCH (12:41)
[2018-03-25] MEDS ORDERED: atorvastatin 10mg tablet PO SCH (17:00)
[2018-03-25] MEDS: vancomycin inj 1,250 MG in normal saline 250ml IV soln 250 ML IV SCH (17:43)
[2018-03-25] MEDS: budesonide 0.5mg/2ml UD nebule IH SCH (19:34)
[2018-03-25] MEDS: traZODone 150mg tablet PO SCH (22:09)
[2018-03-26] VITALS (9 sets, daily range): BP systolic 92–119; BP diastolic 55–90
[2018-03-26] MEDS: methylPREDNISolone sod succ 125mg/2ml vial IV SCH ×4 (00:20→23:55)
[2018-03-26] MEDS: vancomycin inj 1,250 MG in normal saline 250ml IV soln 250 ML IV SCH (04:43)
[2018-03-26 05:43] LABS: BASOPHILS % (AUTO) 0.2 % (0-1); EOSINOPHILS % (AUTO) 0 % (0-6); HEMATOCRIT 34.7 % (42.0-52.0); HEMOGLOBIN 11.2 g/dl (14.0-17.9); LYMPHOCYTES # (AUTO) 0.6 X10'3 (1.1-4.8); LYMPHOCYTES % (AUTO) 5.5 % (21-51); MEAN CORPUSCULAR HEMOGLOBIN 31.1 PG (27.0-31.0); MEAN CORPUSCULAR HGB CONC 32.3 % (33.0-36.5); MEAN CORPUSCULAR VOLUME 96.2 FL (78-98); MEAN PLATELET VOLUME 10.2 FL (7.4-10.4); MONOCYTES # (AUTO) 0.3 X10'3 (0-0.9); MONOCYTES % (AUTO) 2.6 % (2-12); NEUTROPHILS # (AUTO) 10.4 X10'3 (1.8-7.7); NEUTROPHILS % (AUTO) 91.7 % (42-75); PLATELET COUNT 144 X10'3 (140-440); RED CELL DISTRIBUTION WIDTH 16.5 % (11.5-14.5); WHITE BLOOD COUNT 11.4 X10'3 (4.5-11.0)
[2018-03-26 05:58] LABS: ALBUMIN 2.6 G/DL (3.4-5.0); ANION GAP 7 (8-16); BLOOD UREA NITROGEN 35 MG/DL (7-18); BUN/CREATININE RATIO 36.5 (5.4-32.0); CALCIUM 8.9 MG/DL (8.5-10.1); CHLORIDE 101 MMOL/L (99-107); CREATININE 0.96 MG/DL (0.60-1.10); GLUCOSE 202 MG/DL (70-104); MAGNESIUM 2.6 MG/DL (1.5-2.4); POTASSIUM 4.8 MMOL/L (3.5-5.1); SODIUM 132 MMOL/L (135-145); TOTAL CARBON DIOXIDE 24.4 MMOL/L (24-32); eGFR 75 ML/MIN
[2018-03-26] MEDS: albuterol 2.5 MG/3 ML nebule NEB SCH ×4 (07:21→19:23)
[2018-03-26] MEDS: budesonide 0.5mg/2ml UD nebule IH SCH ×2 (07:21→19:23)
[2018-03-26] MEDS: carVEDilol 12.5mg tablet PO SCH ×2 (08:00→20:17)
[2018-03-26] MEDS: furosemide 40mg/4ml inj IV SCH ×2 (08:00→20:16)
[2018-03-26] MEDS: K and/or MAG REPLACEMENT MC SCH (08:00)
[2018-03-26] MEDS: levoFLOXACIN-Levaquin 750MG/D5 150 ML IV SCH (08:51)
[2018-03-26] MEDS: amiodarone 200mg tablet PO SCH (08:57)
[2018-03-26] MEDS: aspirin 81mg tablet.DR PO SCH (08:58)
[2018-03-26] MEDS: apixaban 2.5mg tablet PO SCH ×2 (08:58→20:17)
[2018-03-26] MEDS: atorvastatin 20mg tablet PO SCH (08:59)
[2018-03-26] MEDS: magnesium oxide 400mg tablet PO SCH ×2 (09:01→20:16)
[2018-03-26] MEDS: vitamin D (cholecalciferol) 1,000 unit tablet PO SCH (09:02)
[2018-03-26] MEDS: traZODone 150mg tablet PO SCH (20:17)
[2018-03-27] VITALS (7 sets, daily range): BP systolic 95–112; BP diastolic 62–83
[2018-03-27] MEDS ORDERED: VANCOMYCIN LEVEL IV NR (04:30)
[2018-03-27 06:43] LABS: BASOPHILS % (AUTO) 0 % (0-1); EOSINOPHILS % (AUTO) 0 % (0-6); HEMATOCRIT 33.7 % (42.0-52.0); LYMPHOCYTES # (AUTO) 0.3 X10'3 (1.1-4.8); LYMPHOCYTES % (AUTO) 3.7 % (21-51); MEAN CORPUSCULAR HEMOGLOBIN 31.2 PG (27.0-31.0); MEAN CORPUSCULAR HGB CONC 32.6 % (33.0-36.5); MEAN CORPUSCULAR VOLUME 95.6 FL (78-98); MONOCYTES # (AUTO) 0.4 X10'3 (0-0.9); MONOCYTES % (AUTO) 3.7 % (2-12); NEUTROPHILS # (AUTO) 8.9 X10'3 (1.8-7.7); NEUTROPHILS % (AUTO) 92.6 % (42-75); PLATELET COUNT 162 X10'3 (140-440); RED BLOOD COUNT 3.52 X10'6 (4.70-6.10); RED CELL DISTRIBUTION WIDTH 16.2 % (11.5-14.5); WHITE BLOOD COUNT 9.6 X10'3 (4.5-11.0)
[2018-03-27 06:45] LABS: ALBUMIN 2.6 G/DL (3.4-5.0); ANION GAP 4 (8-16); BLOOD UREA NITROGEN 35 MG/DL (7-18); BUN/CREATININE RATIO 34.3 (5.4-32.0); CALCIUM 8.7 MG/DL (8.5-10.1); CHLORIDE 100 MMOL/L (99-107); CREATININE 1.02 MG/DL (0.60-1.10); GLUCOSE 202 MG/DL (70-104); MAGNESIUM 2.5 MG/DL (1.5-2.4); POTASSIUM 4.8 MMOL/L (3.5-5.1); SODIUM 134 MMOL/L (135-145); TOTAL CARBON DIOXIDE 29.6 MMOL/L (24-32); eGFR 70 ML/MIN
[2018-03-27] MEDS: carVEDilol 12.5mg tablet PO SCH ×2 (08:00→20:31)
[2018-03-27] MEDS: furosemide 40mg/4ml inj IV SCH ×2 (08:00→20:31)
[2018-03-27] MEDS: K and/or MAG REPLACEMENT MC SCH (08:00)
[2018-03-27] MEDS: budesonide 0.5mg/2ml UD nebule IH SCH ×2 (08:05→18:41)
[2018-03-27] MEDS: albuterol 2.5 MG/3 ML nebule NEB SCH ×4 (08:05→18:41)
[2018-03-27] MEDS: levoFLOXACIN-Levaquin 750MG/D5 150 ML IV SCH (08:12)
[2018-03-27] MEDS: amiodarone 200mg tablet PO SCH (08:19)
[2018-03-27] MEDS: methylPREDNISolone sod succ 125mg/2ml vial IV SCH ×3 (08:19→23:50)
[2018-03-27] MEDS: aspirin 81mg tablet.DR PO SCH (08:20)
[2018-03-27] MEDS: apixaban 2.5mg tablet PO SCH ×2 (08:21→20:32)
[2018-03-27] MEDS: atorvastatin 20mg tablet PO SCH (08:21)
[2018-03-27] MEDS: vitamin D (cholecalciferol) 1,000 unit tablet PO SCH (08:22)
[2018-03-27] MEDS: magnesium oxide 400mg tablet PO SCH ×2 (08:22→20:00)
[2018-03-27] MEDS: lactobacillus rhamnosus 10,000 MMU CELLS/CAPSULE PO SCH (20:31)
[2018-03-27] MEDS: traZODone 150mg tablet PO SCH (20:32)
[2018-03-28 03:00] VITALS: BP 90/64
[2018-03-28 06:00] VITALS: BP 112/73
[2018-03-28] MEDS: magnesium oxide 400mg tablet PO SCH (06:45)
[2018-03-28] MEDS: albuterol 2.5 MG/3 ML nebule NEB SCH ×2 (07:00→12:11)
[2018-03-28] MEDS: furosemide 40mg/4ml inj IV SCH (07:42)
[2018-03-28] MEDS: levoFLOXACIN-Levaquin 750MG/D5 150 ML IV SCH (07:44)
[2018-03-28] MEDS: methylPREDNISolone sod succ 125mg/2ml vial IV SCH (07:46)
[2018-03-28] MEDS: amiodarone 200mg tablet PO SCH (07:47)
[2018-03-28] MEDS: carVEDilol 12.5mg tablet PO SCH (07:47)
[2018-03-28] MEDS: aspirin 81mg tablet.DR PO SCH (07:48)
[2018-03-28] MEDS: atorvastatin 20mg tablet PO SCH (07:48)
[2018-03-28] MEDS: lactobacillus rhamnosus 10,000 MMU CELLS/CAPSULE PO SCH (07:48)
[2018-03-28] MEDS: apixaban 2.5mg tablet PO SCH (07:48)
[2018-03-28] MEDS: vitamin D (cholecalciferol) 1,000 unit tablet PO SCH (07:49)
[2018-03-28] MEDS: budesonide 0.5mg/2ml UD nebule IH SCH (08:42)
[2018-03-28 11:00] VITALS: BP 91/70
[2018-03-29] MEDS ORDERED: levoFLOXACIN 750MG TABLET PO SCH (11:00)
== END 2018-03-28 15:00 | DRG 177 ==
LOC: ER 12:20 → ED HOLD 13:32 → PCU 3S 15:02
PROVIDERS: ADMIT Internal Medicine; ATTEND Family Medicine
PROC: 5A09357 Assistance with Respiratory Ventilation, Less than 24 Consecutive Hours, Continuous Positive Airway Pressure (ICD-10-PCS; principal; 2018-03-24)
PROC: 5A09357 Assistance with Respiratory Ventilation, Less than 24 Consecutive Hours, Continuous Positive Airway Pressure (ICD-10-PCS; 2018-03-25)
PROC: B32T1ZZ Computerized Tomography (CT Scan) of Left Pulmonary Artery using Low Osmolar Contrast (ICD-10-PCS; 2018-03-25)
PROC: B3201ZZ Computerized Tomography (CT Scan) of Thoracic Aorta using Low Osmolar Contrast (ICD-10-PCS; 2018-03-25)
PROC: B32S1ZZ Computerized Tomography (CT Scan) of Right Pulmonary Artery using Low Osmolar Contrast (ICD-10-PCS; 2018-03-25)
PROC: 5A09357 Assistance with Respiratory Ventilation, Less than 24 Consecutive Hours, Continuous Positive Airway Pressure (ICD-10-PCS; 2018-03-26)
PROC: 5A09357 Assistance with Respiratory Ventilation, Less than 24 Consecutive Hours, Continuous Positive Airway Pressure (ICD-10-PCS; 2018-03-27)
PROC: 3E02340 Introduction of Influenza Vaccine into Muscle, Percutaneous Approach (ICD-10-PCS; 2018-03-27)
PROC: 5A09357 Assistance with Respiratory Ventilation, Less than 24 Consecutive Hours, Continuous Positive Airway Pressure (ICD-10-PCS; 2018-03-28)
DX: J69.0 Pneumonitis due to inhalation of food and vomit (principal); I50.23 Acute on chronic systolic (congestive) heart failure; J96.21 Acute and chronic respiratory failure with hypoxia; J44.1 Chronic obstructive pulmonary disease with (acute) exacerbation; I48.2 Chronic atrial fibrillation; E78.5 Hyperlipidemia, unspecified; I11.0 Hypertensive heart disease with heart failure; I25.10 Atherosclerotic heart disease of native coronary artery without angina pectoris; Z66 Do not resuscitate; I49.5 Sick sinus syndrome; Z23 Encounter for immunization; Z90.2 Acquired absence of lung [part of]; Z95.810 Presence of automatic (implantable) cardiac defibrillator; Z95.5 Presence of coronary angioplasty implant and graft; Z88.0 Allergy status to penicillin; Z88.1 Allergy status to other antibiotic agents; Z88.6 Allergy status to analgesic agent; Z88.8 Allergy status to other drugs, medicaments and biological substances; Z79.01 Long term (current) use of anticoagulants; Z79.899 Other long term (current) drug therapy; Z79.82 Long term (current) use of aspirin; Z87.891 Personal history of nicotine dependence
CPT/HCPCS: 36415; 36600; 71045; 71275; 80048; 80053; 82803; 83605; 83735; 83880; 84484; 85018; 85025; 85610; 85730; 87040; 87070; 87077; 87186; 93005; 94640; 94644; 94660; 94760; 97116; 97161; 97530; 99285; G0378; J1940; J1956; J2060; J2930; J3370; J3490; J7030; J7626; Q9967